=== PATIENT | male | born 1970 | race Caucasian/White ===

== ENCOUNTER 2024-03-21 11:59 | Inpatient (IN) | payer OTHER ==
[~2024-03-21] VITALS: Ht 243.8 cm; Wt 98.0 kg
[2024-03-21 11:52] VITALS: BP 101/64
[~2024-03-21 11:59] MED LIST: LIPITOR80 MG PO; SYNTHROID75 MCG PO; [UNRECOGNIZED DRUG - OTHER]
[2024-03-24] MEDS ORDERED: TRANEXAMIC ACID 100MG/1ML (1000MG) AMPUL IV ONE (13:17)
[2024-03-24] MEDS ORDERED: CEFOXITIN SODIUM 2,000 MG VIAL IV ONE (13:17)
[2024-03-24] MEDS ORDERED: ONDANSETRON HCL 2 MG/ML VIAL IV PRN (19:30)
[2024-03-24] MEDS ORDERED: ONDANSETRON 4 MG TAB.RAPDIS PO PRN (19:30)
[2024-03-24] MEDS ORDERED: TRAMADOL HCL 50 MG TABLET PO PRN (19:30)
[2024-03-24] MEDS ORDERED: SODIUM CHLORIDE 0.45 % 1,000 ML IV SCH (19:30)
[2024-03-24] MEDS ORDERED: PROMETHAZINE HCL 50 MG/ML AMPUL IM PRN (19:30)
[2024-03-24] MEDS ORDERED: MEPERIDINE HCL/PF 50 MG/ML VIAL IM PRN (19:30)
[2024-03-24] MEDS ORDERED: CEFOXITIN SODIUM 2,000 MG in 0.9 % SODIUM CHLORIDE 100 ML IV SCH (19:34)
[2024-03-24] MEDS ORDERED: ACETAMINOPHEN 325 MG TABLET PO SCH (21:00)
[2024-03-24] MEDS ORDERED: KETOROLAC TROMETHAMINE 10 MG TABLET PO SCH (21:00)
[2024-03-24] MEDS ORDERED: MORPHINE SULFATE 4 MG/ML VIAL IV ONE (21:05)
[2024-03-24 21:56] VITALS: BP 101/64; O2SAT 98
[2024-03-25 00:11] VITALS: BP 98/66; O2SAT 95
[2024-03-25] MEDS ORDERED: CELECOXIB 200 MG CAPSULE PO SCH (01:00)
[2024-03-25 07:06] LABS: HEMATOCRIT 31.3 % (39.0-48.0); HEMOGLOBIN 10.6 g/dL (13-16.00); MEAN CELL VOLUME 93.1 fL (80.0-100.00); MEAN CORPUSCULAR HEMOGLOBIN 31.6 pg (27.00-32.0); PLATELET COUNT 299 K/uL (150-450); RED BLOOD COUNT 3.36 M/uL (4.00-6.00); RED CELL DISTRIBUTION WIDTH 12.7 % (11.5-14.5)
[2024-03-25 08:00] VITALS: BP 103/60
[2024-03-25] MEDS ORDERED: PANTOPRAZOLE SODIUM 40 MG TABLET.DR PO SCH (09:00)
[2024-03-25] MEDS ORDERED: RIVAROXABAN 10 MG TAB PO SCH (09:00)
[2024-03-25 12:30] LABS: ALBUMIN 3.3 gm/dL (3.4-5.0); BILIRUBIN TOTAL 0.76 mg/dL (0.3-1.2); CALCIUM 8.3 mg/dL (8.5-10.1); CREATININE SERUM 0.67 mg/dL (0.70-1.30); GFR 123.61; GLOBULINA 2.5 G/DL (2.4-3.5); POTASSIUM 3.88 mEq/L (3.5-5.1); TOTAL PROTEIN 5.8 gm/dL (6.4-8.2)
[2024-03-25] MEDS ORDERED: IRON FUM,PS/FOLIC/BCOMP,C NO.9 1 CAP CAPSULE PO NR (12:45)
[2024-03-25 16:39] VITALS: BP 118/71; O2SAT 99
[2024-03-26 00:20] VITALS: BP 111/57; O2SAT 95
[2024-03-26 06:23] LABS: HEMATOCRIT 26.9 % (39.0-48.0); HEMOGLOBIN 9.6 g/dL (13-16.00); MEAN CELL VOLUME 92.6 fL (80.0-100.00); MEAN CORPUSCULAR HEMOGLOBIN 32.9 pg (27.00-32.0); MEAN CORPUSCULAR HGB CONC 35.5 g/dl (32.0-36.0); PLATELET COUNT 259 K/uL (150-450); RED CELL DISTRIBUTION WIDTH 12.9 % (11.5-14.5)
[2024-03-26 08:09] VITALS: BP 93/57; O2SAT 97
[2024-03-26] MEDS ORDERED: IRON FUM,PS/FOLIC/BCOMP,C NO.9 1 CAP CAPSULE PO SCH (09:00)
[2024-03-26] MEDS ORDERED: SENNA/DOCUSATE SODIUM 1 TAB TABLET PO SCH (09:00)
[2024-03-26 16:35] VITALS: BP 117/66; O2SAT 99
[2024-03-27 00:20] VITALS: BP 133/78; O2SAT 98
[2024-03-27] MEDS ORDERED: LEVOTHYROXINE SODIUM 75 MCG TABLET PO SCH (06:00)
[2024-03-27 08:53] VITALS: BP 133/69; O2SAT 98
== END 2024-03-27 17:23 | DRG 470 ==
LOC: SURG 03-24 10:42 → O/R 03-24 10:42 → SURH 03-24 10:47 → SURG 03-24 15:11
PROVIDERS: ADMIT Orthopaedic Surgery; ATTEND Orthopaedic Surgery
PROC: 0SR90JZ Replacement of Right Hip Joint with Synthetic Substitute, Open Approach (ICD-10-PCS; principal; 2024-03-24 14:30)
DX: M16.11 Unilateral primary osteoarthritis, right hip (principal); M85.661 Other cyst of bone, right lower leg; D64.89 Other specified anemias; I10 Essential (primary) hypertension